=== PATIENT | female | born 1975 | race African-American/Black ===

== ENCOUNTER 2020-04-10 05:54 | Emergency (ER) | payer SELFPAY ==
[2020-04-10 06:12] LABS: #Basophils 0.1 thou/uL (0.0-0.2); #Eosinphils 0.1 thou/uL (0.0-0.7); #Lymphocytes 0.9 thou/uL (1.20-3.40); #Monocytes 0.4 thou/uL (0.11-0.59); #Neutrophils 6.1 thou/uL (1.40-6.50); %Basophils 1.2 % (0.0-1.0); %Eosinophils 1.2 % (0.0-10.0); %Lymphocytes 11.8 % (21.0-51.0); %Monocytes 5.1 % (0.0-10.0); %Neutrophils 80.7 % (42.0-75.0); Hemoglobin 14.1 g/dL (12.0-16.0); Mean Corpuscular HGB CONC 32.8 g/dL (32.0-36.0); Mean Corpuscular Hemoglobin 30.4 pg (27.0-31.0); Mean Corpuscular Volume 92.8 fL (78.0-98.0); Mean Platelet Volume 7.3 fL (7.4-10.4); Platelet Count 244 thou/uL (130-400); RBC Distribution Width 10.9 % (11.5-14.5); Red Blood Cell (RBC) Count 4.63 mill/uL (4.20-5.40); White Blood Cell (WBC) Count 7.6 thou/uL (4.8-10.8)
[2020-04-10] MEDS ORDERED: Famotidine/PF 20 mg/2ml Vial ONE (06:22)
[2020-04-10] MEDS ORDERED: Ondansetron PF 4 MG/2 ML Vial ONE (06:22)
[2020-04-10] MEDS ORDERED: Morphine 4 MG/ML VIAL ONE ×2 (06:22→07:30)
[2020-04-10] MEDS ORDERED: Aspirin Chewable 81 MG TAB ONE (06:22)
[2020-04-10] MEDS ORDERED: Nitroglycerin 2% Ointment 1 INCH/1 GM Packet ONE (06:25)
[2020-04-10 06:28] LABS: ALT (SGPT) 15 U/L (8-55); AST (SGOT) 20 U/L (5-34); Albumin 4.1 g/dL (3.5-5.0); Alkaline Phosphatase 96 U/L (40-110); Anion Gap 16 mmol/L (10-20); BUN (Urea Nitrogen) 10 mg/dL (7.0-18.7); Bilirubin, Total 0.4 mg/dL (0.2-1.2); Calc. Creatinine Clearance 0 mL/min (70-130); Carbon Dioxide 21 mmol/L (22-29); Chloride 105 mmol/L (98-107); Globulin 3.5 g/dL (2.4-3.5); Glucose 161 mg/dL (70-105); Potassium 3.4 mmol/L (3.5-5.1); Protein, Total 7.6 g/dL (6.0-8.3); Sodium 139 mmol/L (136-145)
[2020-04-10] MEDS ORDERED: Sodium Chloride 0.9% 1,000 ML ONE (07:30)
[2020-04-10] MEDS ORDERED: Promethazine HCl 25 MG/ML VIAL ONE (07:30)
[2020-04-10] MEDS ORDERED: Sodium Chloride 0.9% 100 ML ONE (07:37)
[2020-04-10 07:48] LABS: CK (CPK) 86 U/L (29-168); Lipase 27 U/L (8-78)
[2020-04-10 07:56] LABS: BHCG - Serum Negative (NEGATIVE); Pregs Control Bar Appear? YES (CONTROL BAR)
[2020-04-10] MEDS ORDERED: Iopamidol 370 76% 100 ML VIAL ONE (09:00)
[2020-04-10 09:27] LABS: Troponin I Less than 0.010 ng/mL (< 0.028)
[2020-04-10 09:53] LABS: Bacteria/HPF Rare-Few HPF (None Seen); Bilirubin Negative (Negative); Blood, Urine Trace (Negative); Clarity Clear (Clear); Glucose, Urine (Dipstick) Negative (Negative); Ketone, Urine Negative (Negative); Leukocyte Negative (Negative); Nitrite Negative (Negative); Protein, Urine (Dipstick) Negative (Neg-Trace); RBC/HPF 0-3 HPF (0-3); Squamous Epithelial 0-3 HPF (0-3); Urobilinogen 0.2 mg/dL (Less than 2); WBC/HPF 0-3 HPF (0-3); pH, Urine 8.5 (5.0-9.0)
== END 2020-04-10 09:54 | disposition short-term general hospital (02) ==
LOC: NAV ERS 05:54
DX: K81.0 Acute cholecystitis (principal); K21.9 Gastro-esophageal reflux disease without esophagitis; I10 Essential (primary) hypertension; Z79.899 Other long term (current) drug therapy
CPT/HCPCS: 71045; 74177; 80053; 81003; 81015; 82550; 83690; 84484; 84703; 85025; 85379; 93005; 96365; 96375; 96376; J2270; J2405; J2550; J7050; Q9967; S0028